=== PATIENT | female | born 1955 | race Caucasian/White ===

== ENCOUNTER 2019-09-13 13:36 | Inpatient (IN) ==
--- NOTE | 2019-09-13 14:41 | XRay Report ---
XR chest 1V portable CLINICAL HISTORY: cough, syncope COMPARISON STUDY: 03/22/2015 FINDINGS: The cardiac and mediastinal contours are normal. There is no evidence of focal pulmonary co nsolidation. There is no evidence of failure. No pleural effusions are visualized.[Indistinctness lef t heart border is felt to be secondary to a prominent cardiophrenic angle fat pad. There is a mild sc oliosis. IMPRESSION: No active disease in the chest. ACT 112: Negative or not required by law. Electronically signed by: Juno Marquez M.D. 09/13/2019 2:39 PM
--- NOTE | 2019-09-13 14:43 | XRay Report ---
XR foot RT min 3V routine CLINICAL HISTORY: right lateral foot pain, fall trauma. Pain. COMPARISON: None. DISCUSSION: Transverse fracture medial malleolus. Degenerative change of the bony structures of the f oot. Probable fracture base second metatarsal. Degenerative change of the metatarsophalangeal joints throughout. Moderate bunion deformity with ernandez ux valgus configuration. There is no evidence for soft tissue swelling. IMPRESSION: 1. Transverse fracture medial malleolus right ankle. 2. Nondisplaced fracture base second metatarsal. 3. Degenerative change. 4. Small old avulsion anterior inferior calcaneus ACT 112: Negative or not required by law. The above report was generated using voice recognition software. It may contain grammatical, syntax or spelling errors. Electronically signed by: Loc Alvarez M.D. 09/13/2019 2:41 PM
--- NOTE | 2019-09-13 14:43 | XRay Report ---
XR ankle RT min 3V routine CLINICAL HISTORY: fall, pain COMPARISON: None. DISCUSSION: There is lateral soft tissue swelling. There is an oblique fracture of the distal fibula. There is minimal widening of the medial ankle mortise. There is plantar calcaneal spurring. IMPRESSION: 1. Nondisplaced oblique fracture of the distal fibula 2. Minimal widening of the medial ankle mortise. ACT 112: Negative or not required by law. Electronically signed by: Juno Marquez M.D. 09/13/2019 2:41 PM
[2019-09-13] MEDS ORDERED: ONDANSETRON INJ 2 MG/ML 2 ML VIAL IV STA (15:26)
[2019-09-13] MEDS ORDERED: MoRPHine SULFATE 4 MG/ML 1 ML CARP\\VIAL IV STA (15:26)
[2019-09-13 15:32] LABS: Basophils # (auto) 0.04 K/uL (0-0.2); Basophils % (auto) 0.3 %; Eosinophils # (auto) 0.23 K/uL (0-0.5); Eosinophils % (auto) 1.5 %; Hematocrit (blood only) 45.5 % (37-47); Hemoglobin 15.5 g/dL (12.0-16.0); Immature Granulocytes # (auto) 0.07 K/uL (0.00-0.02); Immature Granulocytes % (auto) 0.5 %; Lymphocytes # (auto) 2.58 K/uL (1.2-3.4); Lymphocytes % (auto) 16.9 %; Mean Corpuscular Hemoglobin 31.6 pg (25-34); Mean Corpuscular Hgb Conc 34.1 g/dL (32-36); Mean Corpuscular Volume 92.7 fL (80-100); Mean Platelet Volume 10.4 fL (7.4-10.4); Monocytes # (auto) 1.04 K/uL (0.11-0.59); Monocytes % (auto) 6.8 %; Neutrophils # (auto) 11.35 K/uL (1.4-6.5); Platelet Count 301 K/uL (130-400); RDW Coefficient of Variation 14.3 % (11.5-14.5); Red Blood Count 4.91 M/uL (4.2-5.4); White Blood Count 15.31 K/uL (4.8-10.8)
[2019-09-13 15:42] LABS: Prothrombin Time 10.4 Seconds (9.0-12.0)
--- NOTE | 2019-09-13 15:52 | CT Scan Report ---
CT head/brain wo con CT DOSE: 691.05 mGy.cm HISTORY: Mental status change syncope TECHNIQUE: Multiaxial CT images of the head were performed without the use of intravenous contrast. A dose lowering technique was utilized adhering to the principles of ALARA. Comparison: None. Findings: The paranasal sinuses and mastoid air cells are clear. The calvarium and skull base are int act. The ventricles and sulci are within normal limits. There is no mass, hematoma, midline shift, or acute infarct. Impression: No acute intracranial abnormality. ACT 112: Negative or not required by law. The above report was generated using voice recognition software. It may contain grammatical, syntax or spelling errors. Electronically signed by: Loc Alvarez M.D. 09/13/2019 3:50 PM
[2019-09-13 15:53] LABS: Alanine Aminotransferase 20 U/L (12-78); Albumin Level 3.5 gm/dl (3.4-5.0); Aspartate Aminotransferase 15 U/L (15-37); BUN Creatinine Ratio 13.6 (10-20); Blood Urea Nitrogen 19 mg/dl (7-18); Calcium 9.3 mg/dl (8.5-10.1); Carbon Dioxide 29 mmol/L (21-32); Chloride 102 mmol/L (98-107); Est GFR (Non-African American) 39.7; Glucose 116 mg/dl (70-99); Magnesium 2.1 mg/dl (1.8-2.4); Potassium 4.3 mmol/L (3.5-5.1); Sodium 135 mmol/L (136-145)
[2019-09-13 16:03] LABS: Albumin Globulin Ratio 0.8 (0.9-2); Alkaline Phosphatase 97 U/L (45-117); Bilirubin,Total 0.7 mg/dl (0.2-1); Globulin 4.5 gm/dl (2.5-4.0); Troponin I < 0.015 ng/ml (0-0.045)
--- NOTE | 2019-09-13 17:35 | Electrocardiogram Report ---
Test Reason : Blood Pressure : / mmHG Vent. Rate : 083 BPM Atrial Rate : 083 BPM P-R Int : 186 ms QRS Dur : 094 ms QT Int : 374 ms P-R-T Axes : 027 -33 -08 degrees QTc Int : 439 ms Poor data quality, interpretation may be adversely affected Sinus rhythm with Premature atrial complexes Left axis deviation Moderate voltage criteria for LVH, may be normal variant Diffuse Nonspecific T wave abnormality Nonspecific ST abnormality Anterior leads Abnormal ECG When compared with ECG of 24-MAR-2015 07:14, Premature atrial complexes are now Present Otherwise no significant change Confirmed by Erasto Casarez ([id number]) on 09/13/2019 5:34:59 PM Referred By: REFERRED SELF Confirmed By:Erasto Casarez
[2019-09-13 17:58] LABS: Creatine Kinase 143 U/L (26-192)
--- NOTE | 2019-09-13 18:20 | History & Physical Report ---
Date of Service September 13, 2019 Assessment & Plan (1) Syncope: (2) Fall: Pt is 63 y/o F with PMH HTN, asthma, CKD III, HLD, depression, obesity presented to ER with c/o episode of dizziness with walking to bathroom at 1:00AM followed by black vision and syncope and fall. Denies SOB, CP prior to fall. In ER afebrile, P: 67, R: 20, BP: 138/95, 99% on RA. WBC: 15, Hgb: 15.5, Na: 135, glucose: 116, negative troponin, EKG with sinus rhythm, PAC, nonspecific ST changes CT HEAD: No acute changes CXR: no acute changes DDX: orthostatic hypotension, vasovagal syncope, hypoglycemia, arrhythmia -Tele to monitor for arrhythmias -Obtain orthostatic vitals -UA pending -CPK WNL -Fall precautions -CBC, BMP in am (3) Closed right ankle fracture: (4) Closed fracture of metatarsal of right foot: S/P Fall RIGHT ANKLE XRAY: 1. Nondisplaced oblique fracture of the distal fibula. 2. Minimal widening of the medial ankle mortise. RIGHT FOOT XRAY: 1. Transverse fracture medial malleolus right ankle. 2. Nondisplaced fracture base second metatarsal. 3. Degenerative change. 4. Small old avulsion anterior inferior calcaneus -In ER given Morphine 4mg IV, Zofran 4mg IV -In ER splint applied to right lower leg and foot -Oxycodone prn pain -Ortho consult -Consider PT/OT eval when appropriate (5) Asthma: Recent URI symptoms 2 weeks ago with improvement of symptoms No current wheezing -Pt not taking her Flovent that was previously prescribed as it was too expensive -Continue albuterol prn (6) Hypertension: Stable -Continue metoprolol (7) CKD (chronic kidney disease), stage III: Cr: 1.39. Baseline Cr: 1.2 -Avoid nephrotoxic agents when possible -Monitor renal functions (8) Depression: Stable -Continue citalopram, bupropion (9) Hyperlipidemia: -Pt not taking statin. Unsure why she stopped taking it (10) EUGENE (obstructive sleep apnea): -Noncompliant with CPAP in past -Oxygen HS (11) Obesity: BMI>40 -Lifestyle modifications recommended (12) Tobacco use: -Smoking cessation encouraged -Denies nicotine patch DVT Prophylaxis -Lovenox SQ Full Code as per discussion with pt Follows with Dr Carmen Manzanares for routine care Pt was seen and care coordinated with Dr Ahuja. See addendum History of Present Illness Chief Complaint: Syncope, right ankle pain Primary Care Provider: Carmen Manzanares MD Pt is 63 y/o F with PMH HTN, asthma, CKD III, HLD, depression, obesity presented to ER with c/o syncope and fall. Pt reports 2 weeks ago started with sore throat, cough, nasal congestion, wheezing without fever/chills. She states was taking Marita-seltzer, then tried Delsym and has been taking Mucinex DM once a day. Reports sore throat, congestion, wheezing and cough has resolved. Reports SOB at baseline and uses Albuterol inhaler a couple of times a week at baseline and denies more frequent use recently. Reports last night got out of bed at 1:00AM and felt dizzy with walking and then reports vision went black and passed out for what she thinks was seconds. She thinks hit her head. States had right ankle pain and was unable to stand up and tried for approx 20 minutes to get herself back into bed. C/O right ankle and foot pain only. Denies any CP or increased SOB prior to syncope. Pt denies frequent dizziness with standing and denies prior hx syncope. Denies fever/chills, diaphoresis, N/V/D/C, VAIL, vision changes, neck pain, CP, orthopnea, palpitations, choking, otalgia, abdominal pain, paresthesias, extremity edema, rashes, urinary symptoms. Allergies Allergy/AdvReac Type Severity Reaction Status Date / Time No Known Allergies Allergy Unverified 09/13/19 14:37 Home Medications Home Medications Medication Instructions Recorded Confirmed Type metoprolol tartrate 25 mg PO BID #0 11/26/08 09/13/19 History citalopram 40 mg PO DAILY #0 01/27/11 09/13/19 History bupropion HCl [Wellbutrin SR] 150 mg PO BID 30 Days #60 tab 03/22/15 09/13/19 History albuterol sulfate 2 puff INHALATION QID PRN 09/13/19 09/13/19 History albuterol sulfate 2.5 mg INHALATION QID PRN 09/13/19 09/13/19 History aspirin 81 mg PO DAILY 09/13/19 09/13/19 History dextromethorphan-guaifenesin 1 tab PO Q12H 09/13/19 09/13/19 History [Mucinex DM] lansoprazole 30 mg PO BID 09/13/19 09/13/19 History Past Med/Surg History Medical History Asthma (Chronic) Asthma exacerbation (Resolved) CKD (chronic kidney disease), stage III COPD exacerbation (Acute) Depression (Chronic) Hyperlipidemia (Chronic) Hypertension (Chronic) Obesity EUGENE (obstructive sleep apnea) Tobacco use Surgical History (Updated 09/13/19 @ 18:22 by Uzma Ratliff PA-C) H/O tubal ligation (Chronic) History of bilateral knee replacement (Chronic) History of cataract surgery Family History (Updated 09/13/19 @ 18:22 by Uzma Ratliff PA-C) Other Cancer Coronary heart disease Depression Diabetes Social History (Updated 09/13/19 @ 18:23 by Uzma Ratliff PA-C) Feels Safe at Home: Yes Smoking Status: Current every day smoker Cigarettes Per Day: 1/2 ppd ; Hx Alcohol Use: Yes (7-8 drinks on the weekends) Hx Substance Use: No Review of Systems Review of Systems: All systems reviewed & are unremarkable except as noted in HPI & below Physical Exam Physical Exam: General: no acute distress, obese Head: normocephalic, atraumatic Eyes: PERRL, EOM's intact, conjunctiva non-injected, anicteric ENT: normal inspection external ears, nose, mucous membranes moist Neck: supple, trachea midline, non-tender, ROM intact Lungs: clear, no respiratory distress, no wheezing/rhonchi/rales CV: RRR, no murmur, no pretibial edema Abd: normal BS, soft, non-tender Ext: RLE: +splint lower leg to toes in place, sensation to light touch of exposed toes intact, brisk capillary refill. LLE: normal appearance, ROM intact. BUE: normal appearance, ROM intact. Neuro: A&O x 3, no focal deficits noted, normal affect Skin: warm, dry Results & Data Vital Signs (Past 12 Hours) Vital Signs Temp Pulse Pulse Resp BP BP Pulse Ox 01/16/20 17:00 87 18 132/62 94 09/13/19 15:37 85 16 121/54 L 94 09/13/19 13:41 36.7 C 67 20 138/95 99 Laboratory Results Short CBC 09/13/19 Range/Units 15:21 WBC 15.31 H (4.8-10.8) K/uL Hgb 15.5 (12.0-16.0) g/dL Hct 45.5 (37-47) % Plt Count 301 (130-400) K/uL BMP 09/13/19 15:21 Sodium 135 L Potassium 4.3 Chloride 102 Carbon Dioxide 29 BUN 19 H Creatinine 1.39 H Glucose 116 H Calcium 9.3 Cardiac Enzymes 09/13/19 Range/Units 15:21 Total Creatine Kinase 143 (26-192) U/L Troponin I < 0.015 (0-0.045) ng/ml Liver Function 09/13/19 Range/Units 15:21 Total Bilirubin 0.7 (0.2-1) mg/dl AST 15 (15-37) U/L ALT 20 (12-78) U/L Alkaline Phosphatase 97 (45-117) U/L Albumin 3.5 (3.4-5.0) gm/dl Diagnostic Findings CT HEAD: Impression: No acute intracranial abnormality. CXR: IMPRESSION: No active disease in the chest. RIGHT ANKLE XRAY: IMPRESSION: 1. Nondisplaced oblique fracture of the distal fibula 2. Minimal widening of the medial ankle mortise. RIGHT FOOT XRAY: IMPRESSION: 1. Transverse fracture medial malleolus right ankle. 2. Nondisplaced fracture base second metatarsal. 3. Degenerative change. 4. Small old avulsion anterior inferior calcaneus ECG Rhythm: sinus rhythm Findings: + nonspecific-ST abn and + PAC Additional Comments: Read by perianesthesia rn: Sinus rhythm with Premature atrial complexes Left axis deviation Moderate voltage criteria for LVH, may be normal variant Diffuse Nonspecific T wave abnormality Nonspecific ST abnormality Anterior leads Abnormal ECG When compared with ECG of 24-MAR-2015 07:14, Premature atrial complexes are now Present Otherwise no significant change Confirmed by Erasto Casarez ([id number]) on 09/13/2019 5:34:59 PM Code Status & VTE Plan VTE Prophylaxis Plan VTE Prophylaxis will be ordered: Yes Supervising Physician Co-Signing Physician Notes Attending addendum: The patient was seen and examined in emergency room in presence of the daughter She has had a syncopal episode, ended up falling with possible loss of consciousness and fracture of the right ankle and foot Denies any chest pain or palpitation, any new neurological symptoms before the fall except dizziness which seems to be secondary to dehydration Remains stable in the emergency room On examination Complains some pain at the right foot Hemodynamically stable Chest-clear to auscultate bilaterally Heart-S1-S2, regular Abdomen-benign Extremities-trace edema bilaterally in the right lower extremities bandaged [employer]-alert, awake and oriented x3 Admission labs, EKG and imaging studies reviewed Syncope likely secondary to postural hypotension doubt any significant cardiac and/or neurological etiology We will admit to telemetry unit Agree with assessment and plan as outlined above by ALIYAH Edgar Dr
[2019-09-13] MEDS ORDERED: ACETAMINOPHEN 325 MG TAB PO PRN (21:23)
[2019-09-13] MEDS ORDERED: MoRPHine SULFATE 2 MG/ML CARP IV PRN (21:23)
[2019-09-13] MEDS ORDERED: ALBUTEROL 0.083% NEBU SOLN 3 ML VIAL NEB PRN (21:23)
[2019-09-13] MEDS ORDERED: SODIUM CHLORIDE 0.9% 1000ML 1,000 ML IV SCH (21:23)
[2019-09-13] MEDS ORDERED: MoRPHine SULFATE 2 MG/ML CARP ONE (21:47)
[2019-09-13] MEDS: PANTOprazole 40 MG TAB PO SCH (23:25)
[2019-09-13] MEDS: BuPROPion SR 150 MG TABCR PO SCH (23:25)
[2019-09-13] MEDS: METOPROLOL TARTRATE 25 MG TAB PO SCH (23:25)
[2019-09-13] MEDS: ENOXAPARIN INJ 40 MG/0.4 ML SYR SQ SCH (23:32)
--- NOTE | 2019-09-14 00:35 | Emergency Department Note ---
Entered by Dinora Forrest acting as a scribe for ED Provider Note CHIEF COMPLAINT: Syncope HISTORY OF PRESENT ILLNESS: The patient is a 63 year old female who presents to the Emergency Room with complaints of an episode of syncope that occurred 13 hours ago. The patient states that she woke up at 0100 this morning to use the bathroom. The patient states that she started to feel dizzy so she tried to get back into her bed, but she did not make it. The patient states that she had an episode of syncope at this time. The patient states that when she fell, she hit her head, left elbow and right ankle. The patient states that her right ankle twisted and went underneath of her body. The patient states that she lost consciousness for a few seconds. The patient notes that she cannot put any weight on her right ankle. T he patient notes that she has also had cough and congestion for 2.5 weeks. The patient states that she has been taking [place] plus and Mucinex to help her symptoms. The patient notes that she has difficulty breathing at baseline but it has not been any worse than lately. The patient denies taking pain medication today and blood thinner use. Pt denies headache, fevers, chills, diaphoresis, visual changes, neck pain, chest pain, nausea, vomiting, abdominal pain, back pain, melena, hematochezia, urinary symptoms, numbness, weakness, lymphadenopathy, rash, or other complaints. REVIEW OF SYSTEMS: See HPI for pertinent positives and negatives. A total of ten systems were reviewed and were otherwise negative. PMHx/PSHx: Asthma, COPD, hyperlipidemia, hypertension, hypoxia, depression, and acute bronchitis. SOCIAL HISTORY: Patient lives at home. PHYSICAL EXAM: GENERAL: Awake, alert, well-appearing, in no distress HENT: Normocephalic, atraumatic. Oropharynx unremarkable. Tenderness to right occiput. EYES: PERRL. Normal conjunctiva. Sclera non-icteric. NECK: Inspection normal. Non-tender. Supple. No nuchal rigidity. FROM. No masses. RESPIRATORY: Clear to auscultation. No wheezes. No rales. Normal respiratory effort. CARDIAC: Normal rate. Normal rhythm. No murmurs. No rubs. Extremities warm and well perfused. Pulses equal. No JVD. GI: Soft, non-distended. No tenderness to palpation. No rebound or guarding. No masses. RECTAL: Deferred. MUSCULOSKELETAL: Atraumatic. Chest examination reveals no tenderness. The back is symmetrical on inspection without obvious abnormality. There is no CVA tenderness to palpation. No joint edema. Spine is non-tender. UPPER EXTREMITIES: Right upper extremity atraumatic. Left upper extremity atraumatic except for mild contusion on left elbow. LOWER EXTREMITIES: Moderate swelling, bruising and tenderness to the right later al malleolus with the remainder of the right lower extremity atraumatic and non- tender. Left lower extremity atraumatic. NEURO: Normal sensorium. No sensory or motor deficits noted. SKIN: No rash or jaundice noted. EMERGENCY DEPARTMENT COURSE: 1420: Past medical records reviewed. The patient was evaluated in room C06, and a complete history and physical examination were performed. 1602: I updated the patient on the test results. I informed her that shes getting splinted. 1658: I applied the splint at this time. 1715: I updated the patient on the plan for admission. She verbally agrees and understands. 1719: I discussed the patient's case with Uzma Walker PA-C. She accept the patient under Dr. Angela Walker, Hospitalist. They will evalu ate the patient for further management. MEDICAL DECISION MAKING: C6 Triage Nursing notes reviewed and agree them. Additional history obtained from the family. The patient's history was concerning for syncope and ankle pain. Differential diagnosis: Etiologies such as infection, hypoglycemia, electrolyte abnormalities, cardiac sources, intracerebral event, toxicologic, neurologic, fracture, dislocation, soft tissue injury, as well as others were entertained. Physical examination: As above. Quite tender in the ankle region. No open wounds. ER treatment provided: IV hydration with normal saline IV morphine x2 IV Zofran Splinting On reassessment the patient felt better. Diagnostics interpretation by me: ECG: Sinus rhythm without dysrhythmia or ischemia. The labs revealed a moderate leukocytosis on CBC. Chemistry panel was unremarkable. Troponin negative. TSH negative. Imaging studies: Chest x-ray negative for acute process. No pneumonia. CT scan of the head was negative for intracranial bleeding or fracture. X-ray imaging of the right ankle reveals a bimalleolar ankle fracture. There is slight widening of the mortise. There is also a fracture of the base of the second metatarsal. The patient had a syncopal episode. She has bronchitis/flulike symptoms that have been going on for 2 weeks. No pneumonia was seen. She suffered a significant ankle fracture and foot fracture. Further management in the hospital will be necessary. Consultation: A consultation was placed with the hospitalist. The case was discussed and diagnostics were reviewed. The patient was evaluated in the ER for further treatment. IMPRESSION: Syncope, bimalleolar fracture of right ankle, leukocytosis, fracture of second metatarsal bone of right foot. PLAN: Admitted as inpatient Splinting Indication: Right ankle and foot fracture Verbal consent obtained. Risks and benefits were explained with the usual customary discussion. The injured extremity was identified. The patient was prepped and measured for the placement of a short leg posterior with stirrup ortho-glass splint. Splint applied in the standard fashion over a layer of webril and secured using an elastic bandage. Set into a position of function. Normal neurovascular status after placement verified by me. The patient tolerated the procedure well and the care of the splint was discussed with the patient/family. No complications. The scribe's documentation has been prepared under my direction and personally reviewed by me in its entirety. I confirm that the note above accurately reflects all work, treatment, procedures, and medical decision making performed by me. Impression & Plan Syncope, Bimalleolar fracture of right ankle, Leukocytosis, Fracture of second metatarsal bone of right foot Past Med/Surg History Medical History Asthma (Chronic) Asthma exacerbation (Resolved) CKD (chronic kidney disease), stage III COPD exacerbation (Acute) Depression (Chronic) Hyperlipidemia (Chronic) Hypertension (Chronic) Obesity EUGENE (obstructive sleep apnea) Tobacco use Surgical History (Updated 09/13/19 @ 18:22 by Uzma Ratliff PA-C) H/O tubal ligation (Chronic) History of bilateral knee replacement (Chronic) History of cataract surgery Family History (Updated 09/13/19 @ 18:22 by Uzma Ratliff PA-C) Other Cancer Coronary heart disease Depression Diabetes Social History (Updated 09/13/19 @ 18:23 by Uzma Ratliff PA-C) 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 Required: No Beliefs That Will Affect Care: None Current Living Situation: Alone Other Information That Helps Us Care for You: No Feels Safe at Home: No Is there a partner from a previous relationship who is making you feel unsafe now?: No Any Concerns about Your Family Situation: No Would You Like to Speak to Someone About Your Situation: No Safety Concerns: Feels Safe At This Time Smoking Status: Former smoker Tobacco Type: cigarettes ; Cigarettes Per Day: 1/2 ppd ; Do You Dip or Chew Tobacco: No ; Second Hand Exposure: No ; Tobacco Cessation Education Requested by Patient: No Hx Alcohol Use: No Hx Substance Use: No Results & Data Vital Signs Vital Signs - 24 hr 09/13/19 13:41 09/13/19 14:23 09/13/19 15:06 Temperature 36.7 C Temperature Source Oral Pulse Rate 67 Pulse Rate [Apical] Respiratory Rate 20 Respiratory Depth Normal Blood Pressure 138/95 Blood Pressure [Left Arm] Blood Pressure Mean 109 Blood Pressure Mean [Left Arm] Pulse Oximetry 99 Oxygen Delivery Method Room Air Room Air Room Air Sepsis New/Unexplained Change in Mental Status No Sepsis Action Taken by Nursing No Action Required 09/13/19 15:37 09/13/19 17:00 Temperature Temperature Source Pulse Rate Pulse Rate [Apical] 85 87 Respiratory Rate 16 18 Respiratory Depth Blood Pressure Blood Pressure [Left Arm] 121/54 L 132/62 Blood Pressure Mean Blood Pressure Mean [Left Arm] 76 85 Pulse Oximetry 94 94 Oxygen Delivery Method Room Air Room Air Sepsis New/Unexplained Change in Mental Status Sepsis Action Taken by Penitentiary Medications Current Medication List: was personally reviewed by me Laboratory Data Attestation: I reviewed the patient's lab results. Result diagrams: 09/13/19 15:21 09/13/19 15:21 Lab Results 09/13/19 09/13/19 09/13/19 Range/Units 15:21 15:21 15:21 WBC 15.31 H (4.8-10.8) K/uL RBC 4.91 (4.2-5.4) M/uL Hgb 15.5 (12.0-16.0) g/dL Hct 45.5 (37-47) % MCV 92.7 (80-100) fL MCH 31.6 (25-34) pg MCHC 34.1 (32-36) g/dL RDW Std Deviation 48.0 H (36.4-46.3) fL RDW Coeff of Janna 14.3 (11.5-14.5) % Plt Count 301 (130-400) K/uL MPV 10.4 (7.4-10.4) fL Immature Gran % (Auto) 0.5 % Neut % (Auto) 74.0 % Lymph % (Auto) 16.9 % [place] % (Auto) 6.8 % Eos % (Auto) 1.5 % Baso % (Auto) 0.3 % Immature Gran # (Auto) 0.07 H (0.00-0.02) K/uL Neut # (Auto) 11.35 H (1.4-6.5) K/uL Lymph # (Auto) 2.58 (1.2-3.4) K/uL [place] # (Auto) 1.04 H (0.11-0.59) K/uL Eos # (Auto) 0.23 (0-0.5) K/uL Baso # (Auto) 0.04 (0-0.2) K/uL PT 10.4 (9.0-12.0) Seconds INR 1.0 (0.9-1.1) Sodium 135 L (136-145) mmol/L Potassium 4.3 (3.5-5.1) mmol/L Chloride 102 (98-107) mmol/L Carbon Dioxide 29 (21-32) mmol/L Anion Gap 4.0 (3-11) BUN 19 H (7-18) mg/dl Creatinine 1.39 H (0.6-1.2) mg/dl Est Cr Clr Drug Dosing Not Reportable Est GFR ( Amer) 46.0 Est GFR (Non-Af Amer) 39.7 BUN/Creatinine Ratio 13.6 (10-20) Glucose 116 H (70-99) mg/dl Calcium 9.3 (8.5-10.1) mg/dl Magnesium 2.1 (1.8-2.4) mg/dl Total Bilirubin 0.7 (0.2-1) mg/dl AST 15 (15-37) U/L ALT 20 (12-78) U/L Alkaline Phosphatase 97 (45-117) U/L Total Creatine Kinase 143 (26-192) U/L Troponin I < 0.015 (0-0.045) ng/ml Total Protein 8.0 (6.4-8.2) gm/dl Albumin 3.5 (3.4-5.0) gm/dl Globulin 4.5 H (2.5-4.0) gm/dl Albumin/Globulin Ratio 0.8 L (0.9-2) TSH 2.850 (0.300-4.500) uIu/ml Administered Medications Bupropion HCl (Wellbutrin-Sr) 150 mg PO BID NEELAM Stop: 10/13/19 22:59 Last Admin: 09/13/19 23:25 Dose: 150 mg Documented by: [id number] Enoxaparin Sodium (Lovenox) 40 mg SQ Q24H NEELAM Stop: 10/13/19 22:59 Last Admin: 09/13/19 23:32 Dose: 40 mg Documented by: [id number] Sodium Chloride (Nss 1000ml) 1,000 mls @ 100 mls/hr IV .Q10H NEELAM Stop: 09/14/19 07:22 Last Admin: 09/13/19 21:50 Dose: 100 mls/hr Documented by: [id number] Metoprolol Tartrate (Lopressor) 25 mg PO BID NEELAM Stop: 10/13/19 22:59 Last Admin: 09/13/19 23:25 Dose: 25 mg Documented by: [id number] Pantoprazole Sodium (Protonix) 40 mg PO BID NEELAM Stop: 10/13/19 22:59 Last Admin: 09/13/19 23:25 Dose: 40 mg Documented by: [id number] Discontinued Medications Morphine Sulfate (Morphine Sulfate) 4 mg IV NOW STA Stop: 09/13/19 15:27 Last Admin: 09/13/19 15:37 Dose: 4 mg Documented by: [id number] Morphine Sulfate (Morphine Sulfate) Confirm Administered Dose 2 mg .ROUTE .STK- MED ONE Stop: 09/13/19 21:48 Last Admin: 09/13/19 21:49 Dose: 2 mg Documented by: [id number] Ondansetron HCl (Zofran) 4 mg IV NOW STA Stop: 09/13/19 15:27 Last Admin: 09/13/19 15:37 Dose: 4 mg Documented by: [id number] Imaging Data Radiologist's Impression: Radiology results as stated below per my review and the radiologist's interpretation: CT head/brain wo con CT DOSE: 691.05 mGy.cm HISTORY: Mental status change syncope TECHNIQUE: Multiaxial CT images of the head were performed without the use of intravenous contrast. A dose lowering technique was utilized adhering to the principles of ALARA. Comparison: None. Findings: The paranasal sinuses and mastoid air cells are clear. The calvarium and skull base are intact. The ventricles and sulci are within normal limits. There is no mass, hematoma, midline shift, or acute infarct. Impression: No acute intracranial abnormality. ACT 112: Negative or not required by law. The above report was generated using voice recognition software. It may contain grammatical, syntax or spelling errors. Electronically signed by: Loc Alvarez M.D. 09/13/2019 3:50 PM XR chest 1V portable CLINICAL HISTORY: cough, syncope COMPARISON STUDY: 03/22/2015 FINDINGS: The cardiac and mediastinal contours are normal. There is no evidence of focal pulmonary consolidation. There is no evidence of failure. No pleural effusions are visualized.[Indistinctness left heart border is felt to be secondary to a prominent cardiophrenic angle fat pad. There is a mild scoliosis. IMPRESSION: No active disease in the chest. ACT 112: Negative or not required by law. Electronically signed by: Juno Marquez M.D. 09/13/2019 2:39 PM XR ankle RT min 3V routine CLINICAL HISTORY: fall, pain COMPARISON: None. DISCUSSION: There is lateral soft tissue swelling. There is an oblique fracture of the distal fibula. There is minimal widening of the medial ankle mortise. There is plantar calcaneal spurring. IMPRESSION: 1. Nondisplaced oblique fracture of the distal fibula 2. Minimal widening of the medial ankle mortise. ACT 112: Negative or not required by law. Electronically signed by: Juno Marquez M.D. 09/13/2019 2:41 PM XR foot RT min 3V routine CLINICAL HISTORY: right lateral foot pain, fall trauma. Pain. COMPARISON: None. DISCUSSION: Transverse fracture medial malleolus. Degenerative change of the bony structures of the foot. Probable fracture base second metatarsal. Degenerative change of the metatarsophalangeal joints throughout. Moderate bunion deformity with hallux valgus configuration. There is no evidence for soft tissue swelling. IMPRESSION: 1. Transverse fracture medial malleolus right ankle. 2. Nondisplaced fracture base second metatarsal. 3. Degenerative change. 4. Small old avulsion anterior inferior calcaneus ACT 112: Negative or not required by law. The above report was generated using voice recognition software. It may contain grammatical, syntax or spelling errors. Electronically signed by: Loc Alvarez M.D. 09/13/2019 2:41 PM ECG Data Attestation: I personally reviewed and interpreted this ECG as follows: Indication: + syncope Rate (beats per minute): 83 Rhythm: sinus rhythm ECG Intervals/blocks: + Normal QRS ECG ST segments: + Nonspecific ST abnormalities ECG Findings: + PACs and + LVH Comparison ECG Date: from (03/24/2015) Change: the following changes noted (PAC new) Blood Pressure Blood Pressure Findings: Elevated blood pressure Blood Pressure Disposition: further management by hospitalist Discharge Plan Visit Data *Final* Discharge Date/Time: 09/13/19 20:45 Chief Complaint: Syncope Stated Complaint: RIGHT ANKLE INJURY, PASSED OUT ED Provider: Chidi Briseno Discharge Problem: Syncope, Bimalleolar fracture of right ankle, Leukocytosis, Fracture of second metatarsal bone of right foot Patient Disposition: Admitted As Inpatient Discharge Instructions Interventions: ED Discharge Assessment Last Done: 09/13/19 20:45 Discharge Problem: Syncope Qualifiers: Syncope type: unspecified Qualified Code(s): R55 - Syncope and collapse Bimalleolar fracture of right ankle Qualifiers: Encounter type: initial encounter Fracture type: closed Qualified Code(s): S82.841A - Displaced bimalleolar fracture of right lower leg, initial encounter for closed fracture Leukocytosis Qualifiers: Leukocytosis type: unspecified Qualified Code(s): D72.829 - Elevated white blood cell count, unspecified Fracture of second metatarsal bone of right foot Qualifiers: Encounter type: initial encounter Fracture type: closed Fracture alignment: nondisplaced Qualified Code(s): S92.324A - Nondisplaced fracture of second metatarsal bone, right foot, initial encounter for closed fracture The scribe's documentation has been prepared under my direction and personally reviewed by me in its entirety. I confirm that the note above accurately reflects all work, treatment, procedures, and medical decision making performed by me.
[2019-09-14 02:06] LABS: Appearance Urine Cloudy (Clear); Bacteria Urine Automated 1+ (Negative); Bilirubin Urine Negative (Negative); Blood Urine 1+ (Negative); Color Urine Dark Yellow; Epithelial Cell Urine Auto >30 /lpf (0-5); Glucose Urine UA Negative (Negative); Ketones Urine Negative (Negative); Leukocyte Esterase Urine Negative (Negative); Nitrite Urine Negative (Negative); Protein Urine Negative (Negative); RBC Urine Automated 0-4 /hpf (0-4); Urobilinogen Urine Negative (Negative)
[2019-09-14] MEDS: OXYCODONE HCL IR 5 MG TAB (IMMEDIATE RELEASE) PO PRN ×3 (07:56→18:55)
[2019-09-14 07:57] LABS: Basophils # (auto) 0.05 K/uL (0-0.2); Basophils % (auto) 0.4 %; Eosinophils % (auto) 3.4 %; Hematocrit (blood only) 40.7 % (37-47); Hemoglobin 13.4 g/dL (12.0-16.0); Immature Granulocytes # (auto) 0.04 K/uL (0.00-0.02); Immature Granulocytes % (auto) 0.3 %; Lymphocytes # (auto) 3.13 K/uL (1.2-3.4); Lymphocytes % (auto) 26.8 %; Mean Corpuscular Hemoglobin 31.2 pg (25-34); Mean Corpuscular Hgb Conc 32.9 g/dL (32-36); Mean Corpuscular Volume 94.7 fL (80-100); Mean Platelet Volume 10.1 fL (7.4-10.4); Monocytes # (auto) 1.01 K/uL (0.11-0.59); Monocytes % (auto) 8.6 %; Neutrophils # (auto) 7.07 K/uL (1.4-6.5); Neutrophils % (auto) 60.5 %; Platelet Count 269 K/uL (130-400); RDW Coefficient of Variation 14.5 % (11.5-14.5); RDW Standard Deviation 49.6 fL (36.4-46.3)
[2019-09-14] MEDS: CITALOPRAM 40 MG TAB PO SCH (07:57)
[2019-09-14] MEDS: PANTOprazole 40 MG TAB PO SCH ×2 (07:57→20:55)
[2019-09-14] MEDS: ASPIRIN 81 MG ECTAB PO SCH (07:57)
[2019-09-14] MEDS: BuPROPion SR 150 MG TABCR PO SCH ×2 (07:58→20:55)
[2019-09-14] MEDS: METOPROLOL TARTRATE 25 MG TAB PO SCH ×2 (07:58→20:54)
[2019-09-14 08:25] LABS: BUN Creatinine Ratio 14.6 (10-20); Calcium 8.7 mg/dl (8.5-10.1); Est GFR (African American) 51.8; Est GFR (Non-African American) 44.7
--- NOTE | 2019-09-14 16:33 | Ultrasound Report ---
US carotid doppler BI CLINICAL HISTORY: 63 years-old Female presenting with presyncope/syncope. TECHNIQUE: Real-time grayscale and color and spectral Doppler ultrasound imaging of the bilateral car otid arteries was performed. Stenosis measurements were based on NASCET-like criteria (distal lumen d iameter as the denominator for stenosis measurement). COMPARISON: None. FINDINGS: RIGHT: Common carotid artery (CCA): Atherosclerosis at the carotid bulb. Peak systolic velocity (PSV) 91 cm/ s. Internal carotid artery (ICA): Atherosclerosis of the proximal ICA. PSV 88 cm/s. End diastolic veloci ty (EDV) 43 cm/s. ICA/CCA (systolic) ratio: 1.6. External carotid artery (ECA): Patent. PSV 98 cm/s. LEFT: CCA: Atherosclerosis at the carotid bulb. PSV 104 cm/s. ICA: Atherosclerosis of the proximal ICA. PSV 82 cm/s. EDV 38 cm/s. ICA/CCA (systolic) ratio: 0.8. ECA: Patent. PSV 59 cm/s. Bilateral antegrade flow within the vertebral arteries. Blood pressure: Brachial: Right: 158/118 mmHg, Left: 155/93 mmHg. Reference ranges: Stenosis measurements are compared to reference velocity parameters by the Society of Radiologists in Ultrasound (SRU) consensus and Sonographic NASCET index (S-NASCET). * SRU Primary parameters: ICA PSV <125 cm/s = normal or less than 50% stenosis; ICA PSV 125-230 cm/s = 50-69% stenosis; ICA PSV >230 cm/s = greater than or equal to 70% stenosis. * SRU Additional parameters: ICA/CCA PSV ratio <2 = normal or less than 50% stenosis; ratio 2-4 = 5 0-69% stenosis; ratio >4 = greater than or equal to 70% stenosis. ICA EDV <40 cm/s = normal or less t herndon 50% stenosis; ICA EDV 40-100 cm/s = 50-69% stenosis; ICA EDV >100 cm/s = greater than or equal to 70% stenosis. * S-NASCET parameters: Deceleration spectral broadening + PSV <125 cm/s = less than 50% stenosis; pa nsystolic spectral broadening + PSV <125 cm/s = 16-49% stenosis; pansystolic spectral broadening + PS V >125 cm/s + EDV <110 cm/s or ICA/CCA PSV ratio 2-4 = 50-69% stenosis; pansystolic spectral broadeni ng + PSV >270 cm/s OR EDV >110 cm/s OR ICA/CCA PSV ratio >4 = 70-79% stenosis; EDV >140 cm/s = 80-99% stenosis. IMPRESSION: 1. No hemodynamically significant stenosis seen within the carotid arteries. 2. Hypertension suspected. ACT 112: Negative or not required by law. Electronically signed by: Meño Martinez M.D. 09/14/2019 4:32 PM
--- NOTE | 2019-09-14 16:51 | Orthopedic Consultation ---
Date of Consultation September 14, 2019 Assessment & Plan (1) Bimalleolar fracture of right ankle: Bimalleolar closed right ankle fracture. Some widening of the mortise. Recommending open reduction total fixation with fibular plate and K wire or screw fixation medial malleolus. Patient will need full syncope work-up and off anticoagulants prior to surgery. (2) Fracture of second metatarsal bone of right foot: Nonsurgical management of metatarsal fracture with mobilization of ankle and metatarsal fracture postop. History of Present Illness Attending Physician: Carlos Hudson MD History of Present Illness 63-year-old female had a syncopal episode. She described feeling a little lightheaded was getting out of bed to go to the bathroom and had the episode and twisted her ankle and was unable to bear weight. Allergies Allergy/AdvReac Type Severity Reaction Status Date / Time No Known Allergies Allergy Unverified 09/13/19 14:37 Home Medications Home Medications Medication Instructions Recorded Confirmed Type metoprolol tartrate 25 mg PO BID #0 11/26/08 09/13/19 History citalopram 40 mg PO DAILY #0 01/27/11 09/13/19 History bupropion HCl [Wellbutrin SR] 150 mg PO BID 30 Days #60 tab 03/22/15 09/13/19 History albuterol sulfate 2 puff INHALATION QID PRN 09/13/19 09/13/19 History albuterol sulfate 2.5 mg INHALATION QID PRN 09/13/19 09/13/19 History aspirin 81 mg PO DAILY 09/13/19 09/13/19 History dextromethorphan-guaifenesin 1 tab PO Q12H 09/13/19 09/13/19 History [Mucinex DM] lansoprazole 30 mg PO BID 09/13/19 09/13/19 History Patient History Medical History Asthma (Chronic) Asthma exacerbation (Resolved) CKD (chronic kidney disease), stage III COPD exacerbation (Acute) Depression (Chronic) Hyperlipidemia (Chronic) Hypertension (Chronic) Obesity EUGENE (obstructive sleep apnea) Tobacco use Surgical History (Updated 09/13/19 @ 18:22 by Uzma Ratliff PA-C) H/O tubal ligation (Chronic) History of bilateral knee replacement (Chronic) History of cataract surgery Family History (Updated 09/13/19 @ 18:22 by Uzma Ratliff PA-C) Other Cancer Coronary heart disease Depression Diabetes Social History (Updated 09/13/19 @ 18:23 by Uzma Ratliff PA-C) Communication Ability: Effective 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 Beliefs That Will Affect Care: None marital status: / Current Living Situation: Alone Other Information That Helps Us Care for You: No Feels Safe at Home: No Is there a partner from a previous relationship who is making you feel unsafe now?: No Any Concerns about Your Family Situation: No Would You Like to Speak to Someone About Your Situation: No Safety Concerns: Feels Safe At This Time Smoking Status: Former smoker Tobacco Type: cigarettes ; Cigarettes Per Day: 1/2 ppd ; Do You Dip or Chew Tobacco: No ; Second Hand Exposure: No ; Tobacco Cessation Education Requested by Patient: No Hx Alcohol Use: No Hx Substance Use: No Review of Systems Review of Systems: Patient had known toe deformities prior to injuring her right foot and ankle and has no history of neuropathy to her knowledge. Patient denies diabetes. Physical Exam Physical Exam: Right lower extremity is in a posterior splint. She has good capillary refill to all of her toes and intact feeling. No trauma left lower extremity. Normal CSM. No other extremity injuries. Results & Data Vital Signs (Past 12 Hours) Vital Signs Temp Pulse Resp BP BP Pulse Ox 09/14/19 15:08 36.7 C 85 20 139/81 94 09/14/19 11:35 37.0 C 83 20 105/75 93 09/14/19 07:32 36.8 C 87 20 121/77 93 X-rays demonstrate a bimalleolar ankle fracture with mild widening of the mortise and metatarsal fractures of the foot at the base of the metatarsals with no major displacement in that area. (1) Bimalleolar fracture of right ankle Encounter type: initial encounter Fracture type: closed Qualified Code(s): S82.841A - Displaced bimalleolar fracture of right lower leg, initial encounter for closed fracture (2) Fracture of second metatarsal bone of right foot Encounter type: initial encounter Fracture alignment: nondisplaced Fracture type: closed Qualified Code(s): S92.324A - Nondisplaced fracture of second metatarsal bone, right foot, initial encounter for closed fracture
[2019-09-14] MEDS: ENOXAPARIN INJ 40 MG/0.4 ML SYR SQ SCH (20:55)
[2019-09-15] MEDS ORDERED: PROPOFOL IV EMULSION 10 MG/ML 20 ML VIAL IV ONE (07:06)
[2019-09-15] MEDS ORDERED: fentaNYL citrate 100 MCG/2 ML VIAL ONE ×3 (07:10→09:29)
[2019-09-15] MEDS ORDERED: MIDAZOLAM HCL 1 MG/ML 2ML VIAL ONE (07:11)
--- NOTE | 2019-09-15 07:14 | Hospitalist Progress Note ---
Date of Service September 14, 2019 Assessment & Plan (1) Syncope: (2) Fall: Pt is 63 y/o F with PMH HTN, asthma, CKD III, HLD, depression, obesity presented to ER with c/o episode of dizziness with walking to bathroom at 1:00AM followed by black vision and syncope and fall. Denies SOB, CP prior to fall. In ER afebrile, P: 67, R: 20, BP: 138/95, 99% on RA. WBC: 15, Hgb: 15.5, Na: 135, glucose: 116, negative troponin, EKG with sinus rhythm, PAC, nonspecific ST changes CT HEAD: No acute changes CXR: no acute changes DDX: orthostatic hypotension, vasovagal syncope, hypoglycemia, arrhythmia -Tele to monitor for arrhythmias - patient remains in sinus rhythm -Positive orthostatic vitals -Received IV fluids for orthostatics, no more episodes of lightheadedness -Echo and carotid ultrasound ordered -UA - negative -CPK WNL -Fall precautions -cont. CBC, BMP (3) Closed right ankle fracture: (4) Closed fracture of metatarsal of right foot: S/P Fall RIGHT ANKLE XRAY: 1. Nondisplaced oblique fracture of the distal fibula. 2. Minimal widening of the medial ankle mortise. RIGHT FOOT XRAY: 1. Transverse fracture medial malleolus right ankle. 2. Nondisplaced fracture base second metatarsal. 3. Degenerative change. 4. Small old avulsion anterior inferior calcaneus -In ER given Morphine 4mg IV, Zofran 4mg IV -In ER splint applied to right lower leg and foot -Oxycodone prn pain -Ortho consulted - plan for surgical repair tomorrow, n.p.o. after midnight -Consider PT/OT eval when appropriate (5) Asthma: Recent URI symptoms 2 weeks ago with improvement of symptoms No current wheezing -Pt not taking her Flovent that was previously prescribed as it was too expensive -Continue albuterol prn (6) Hypertension: Stable -Continue metoprolol (7) CKD (chronic kidney disease), stage III: Cr: 1.39. Baseline Cr: 1.2 - current Cr 1.26 -Avoid nephrotoxic agents when possible -Monitor renal functions (8) Depression: Stable -Continue citalopram, bupropion (9) Hyperlipidemia: -Pt not taking statin. Unsure why she stopped taking it (10) EUGENE (obstructive sleep apnea): -Noncompliant with CPAP in past -Oxygen HS (11) Obesity: BMI>40 -Lifestyle modifications recommended (12) Tobacco use: -Smoking cessation encouraged -Denies nicotine patch DVT Prophylaxis -Lovenox SQ Full Code as per discussion with pt Follows with Dr Carmen Manzanares for routine care Subjective Patient is lying in bed, breathing on room air, comfortable, only complains about right ankle pain. Says she had " flu" about 2 weeks ago, she has not felt well since then, she has not been eating well either, had emesis on Tuesday and Tuesday. Tells me that occasionally she does get lightheaded when she gets up from bed however it does not happen often to her. She was walking to the bathroom after she got up from bed, became lightheaded, remembers the whole incident. Never had any chest pain, shortness of breath, diaphoresis. Denies any heart disease. In the hospital, she was found orthostatic, positive orthostatic vital signs documented. Received IV fluids on admission. Review of Systems Review of Systems: All systems reviewed & are unremarkable except as noted in HPI & below Constitutional: no fever and no chills Respiratory: no cough, no dyspnea and no pain on inspiration Cardiovascular: no chest pain, no palpitations and no edema Gastrointestinal: no abdominal pain, no nausea and no vomiting Physical Exam Physical Exam: General: no acute distress, obese Head: normocephalic, atraumatic Eyes: PERRL, EOM's intact, conjunctiva non-injected, anicteric ENT: normal inspection external ears, nose, mucous membranes moist Neck: supple, trachea midline, non-tender, ROM intact Lungs: clear, no respiratory distress, no wheezing/rhonchi/rales CV: RRR, no murmur, no pretibial edema Abd: normal BS, soft, non-tender Ext: RLE: +splint lower leg to toes in place, sensation to light touch of exposed toes intact, brisk capillary refill. LLE: normal appearance, ROM intact. BUE: normal appearance, ROM intact. Neuro: A&O x 3, no focal deficits noted, normal affect Skin: warm, dry Results & Data Vital Signs (Past 12 Hours) Vital Signs Temp Pulse Pulse Resp BP Pulse Ox 09/15/19 03:32 37.0 C 84 20 109/70 92 09/15/19 00:30 89 09/15/19 00:21 36.8 C 86 20 137/85 92 09/14/19 22:57 37.1 C 95 H 20 148/81 H 93 09/14/19 19:45 37.1 C 83 20 130/77 94
--- NOTE | 2019-09-15 07:26 | XRay Report ---
XR knee RT 1 or 2V routine HISTORY: 63 years-old Female ankle fracture, 2 view of knee acute right knee pain COMPARISON: None available TECHNIQUE: 2 views of the right knee FINDINGS: Right knee total joint arthroplasty and patella resurfacing. Small joint effusion. Demineralized appe arance of the bones. No acute fracture, dislocation or evidence of hardware complication. IMPRESSION: No acute fracture or dislocation. ACT 112: Negative or not required by law. The above report was generated using voice recognition software. It may contain grammatical, syntax o r spelling errors. Electronically signed by: Sebastian Magallanes M.D. 09/15/2019 7:25 AM
--- NOTE | 2019-09-15 07:42 | Anesthesiology Consultation ---
Date of Service September 15, 2019 Assessment & Plan (1) Encounter for pre-operative examination: Chart Review Chart Review: Acceptable Risk for Surgery and Patient NOT seen in Pre Admission Testing Consults Requested none ASA ASA3 Proposed Anesthesia Anesthesia Type: General Risk / Benefits Reviewed With: PT / POA / Parent / Guardian, Accepts Plan and Informed Consent Obtained History Surgery Operation Date: 09/15/19 07:30 Proposed Procedures p Open Reduction Internal Fixation Bimalleolar Ankle Fracture(Right) - Ross Decker DO Height/Weight Height: 5 ft 6 in Weight: 115.2 kg Allergies Allergy/AdvReac Type Severity Reaction Status Date / Time No Known Allergies Allergy Unverified 09/13/19 14:37 Medications Home Medications Medication Instructions Recorded Confirmed Last Taken metoprolol tartrate 25 mg PO BID #0 11/26/08 09/13/19 09/13/19 citalopram 40 mg PO DAILY #0 01/27/11 09/13/19 09/12/19 bupropion HCl [Wellbutrin SR] 150 mg PO BID 30 Days #60 tab 03/22/15 09/13/19 09/12/19 albuterol sulfate 2 puff INHALATION QID PRN 09/13/19 09/13/19 Unknown albuterol sulfate 2.5 mg INHALATION QID PRN 09/13/19 09/13/19 Unknown aspirin 81 mg PO DAILY 09/13/19 09/13/19 09/12/19 dextromethorphan-guaifenesin 1 tab PO Q12H 09/13/19 09/13/19 09/12/19 [Mucinex DM] lansoprazole 30 mg PO BID 09/13/19 09/13/19 09/12/19 Active Medications Generic Name Dose Route Start Last Admin Trade Name Freq PRN Reason Stop Dose Admin Aspirin 81 mg 09/14/19 09:00 09/14/19 07:57 Ecotrin Ectab PO 10/14/19 08:59 81 mg DAILY NEELAM Administration Bupropion HCl 150 mg 09/13/19 23:00 09/14/19 20:55 Wellbutrin-Sr PO 10/13/19 22:59 150 mg BID NEELAM Administration Citalopram Hydrobromide 40 mg 09/14/19 09:00 09/14/19 07:57 Celexa PO 10/14/19 08:59 40 mg DAILY NEELAM Administration Enoxaparin Sodium 40 mg 09/13/19 23:00 09/14/19 20:55 Lovenox SQ 10/13/19 22:59 40 mg Q24H NEELAM Administration Metoprolol Tartrate 25 mg 09/13/19 23:00 09/14/19 20:54 Lopressor PO 10/13/19 22:59 25 mg BID NEELAM Administration Oxycodone HCl 5 mg 09/13/19 21:23 09/14/19 18:55 Roxicodone Immediate Rel PO 09/27/19 21:22 5 mg Q4H PRN Administration Moderate Pain Pantoprazole Sodium 40 mg 09/13/19 23:00 09/14/19 20:55 Protonix PO 10/13/19 22:59 40 mg BID NEELAM Administration Past Medical History Medical History Asthma (Chronic) Asthma exacerbation (Resolved) CKD (chronic kidney disease), stage III COPD exacerbation (Acute) Depression (Chronic) Hyperlipidemia (Chronic) Hypertension (Chronic) Obesity EUGENE (obstructive sleep apnea) Tobacco use Exercise / Class Metabolic Activity II 4-5 Yardwork/Stairs/Walk up hill Past Family History Family History Other Cancer Coronary heart disease Depression Diabetes Past Surgical History Surgical History H/O tubal ligation (Chronic) History of bilateral knee replacement (Chronic) History of cataract surgery Past Anesthesia History No Hx of Anesthesia Complications and No Family Hx of Anesthesia Complications History of PONV No Hx of PONV and No Hx of Motion Sickness Social History Smoking Status: Former smoker tobacco type: cigarettes Smoking cigarettes per day: 1/2 ppd Do You Dip or Chew Tobacco: No Hx Alcohol Use: No Hx Substance Use: No substance use type: does not use Physical Exam Vital Signs Last Vital Signs Temp 37.0 C 09/15/19 03:32 Pulse 84 09/15/19 03:32 Resp 20 09/15/19 03:32 BP 109/70 09/15/19 03:32 Pulse Ox 92 09/15/19 03:32 ENMT Mouth: + dentures (upper) Thyromental Distance: > or= 3.5 Finger Breadths Mallampati Class: II Neck normal visual inspection Respiratory normal respiratory effort Auscultation: lungs clear to auscultation bilaterally Cardiovascular Rate/Rhythm: regular rate and regular rhythm Psychiatric Orientation: alert Testing Laboratory Results 09/14/19 07:39 09/14/19 07:39 PT 10.4 Seconds (9.0-12.0) 09/13/19 15:21 INR 1.0 (0.9-1.1) 09/13/19 15:21 Urine Color Dark Yellow 09/14/19 01:20 Urine Appearance Cloudy (Clear) A 09/14/19 01:20 Urine pH 5.0 (4.5-7.5) 09/14/19 01:20 Ur Specific [place] 1.030 (1.000-1.030) 09/14/19 01:20 Urine Protein Negative (Negative) 09/14/19 01:20 Urine Glucose (UA) Negative (Negative) 09/14/19 01:20 Urine Ketones Negative (Negative) 09/14/19 01:20 Urine Nitrite Negative (Negative) 09/14/19 01:20 Ur Leukocyte Esterase Negative (Negative) 09/14/19 01:20 Urine WBC (Auto) 1-5 /hpf (0-5) 09/14/19 01:20 Urine RBC (Auto) 0-4 /hpf (0-4) 09/14/19 01:20 U Hyaline Cast (Auto) 5-10 /lpf (0-5) H 09/14/19 01:20 U Epithel Cells (Auto) >30 /lpf (0-5) H 09/14/19 01:20 Urine Bacteria (Auto) 1+ (Negative) H 09/14/19 01:20 09/14/19 01:20 Urine Culture - Final Urine,Clean Catch More than three types of organisms present, all moderate counts mixed probable skin sharmila. No further identifications or sensitivities to follow. Electrocardiogram Date: 09/13/19 Findings: + NSR @ and + NSST changes Chest X-Ray Date: 09/13/19 Findings: + NAD Echocardiogram Date: 09/14/19 EF: 60 LV Function: normal Other Findings: + LVH and + diastolic dysfunction
[2019-09-15] MEDS ORDERED: ePHEDrine sulfate 50 MG/ML AMP IV PRN (07:48)
[2019-09-15] MEDS ORDERED: PROMETHAZINE HCL 6.25 MG in SODIUM CHLORIDE 0.9% 50 ML IV PRN (07:48)
[2019-09-15] MEDS ORDERED: ONDANSETRON INJ 2 MG/ML 2 ML VIAL IV PRN ×2 (07:48→11:38)
[2019-09-15] MEDS ORDERED: fentaNYL citrate 100 MCG/2 ML VIAL IV PRN (07:48)
[2019-09-15] MEDS ORDERED: ATROPINE SULFATE 0.1 MG/ML 10ML SYR IV PRN (07:48)
--- NOTE | 2019-09-15 07:49 | History & Physical Bridge Note ---
Date of Service September 15, 2019 History & Physical Bridge Note I have examined the patient, reviewed the History & Physical and in the interval since the performance of the History & Physical I have noted the following changes of clinical significance: no changes noted
--- NOTE | 2019-09-15 07:52 | Orthopedic Progress Note ---
Date of Service September 15, 2019 Assessment & Plan (1) Bimalleolar fracture of right ankle: I have indicated the patient for closed reduction and splint application versus open reduction internal fixation of right bimalleolar ankle fracture. The risk, benefits, complications and alternatives of the procedure were explained to the patient in detail which include however not limited to infections, blood clots, acute blood loss, injury to surrounding nerves, bone, vessels, soft tissue, arthrofibrosis, chronic pain, malunion, nonunion, failure of the implants, need for additional surgery, loss of limb and loss of life. Alternatives include no surgery which could result in worsening symptoms. Patient wished to proceed with surgical intervention at this time and informed consent was obtained. (2) Fracture of second metatarsal bone of right foot: Nonsurgical management of metatarsal fracture with mobilization of ankle and metatarsal fracture postop. Subjective Patient seen in preoperative holding, comfortable, no acute issues, medically stabilized for surgery today. Review of Systems Review of Systems: All systems reviewed & are unremarkable except as noted in HPI & below Constitutional: as per Subjective / HPI Physical Exam Physical Exam: Right lower extremity physical exam limited secondary to splint application, cap refill less than 2 seconds, neurovascular sensory intact grossly, + EHL/FHL, range of motion the knee without pain or discomfort. No tenderness to palpation proximal fibula. Constitutional: WD/WN, vitals as above Results & Data Vital Signs (Past 12 Hours) Vital Signs Temp Pulse Pulse Resp BP Pulse Ox 09/15/19 03:32 37.0 C 84 20 109/70 92 09/15/19 00:30 89 09/15/19 00:21 36.8 C 86 20 137/85 92 09/14/19 22:57 37.1 C 95 H 20 148/81 H 93 (1) Bimalleolar fracture of right ankle Encounter type: initial encounter Fracture type: closed Qualified Code(s): S82.841A - Displaced bimalleolar fracture of right lower leg, initial encounter for closed fracture (2) Fracture of second metatarsal bone of right foot Encounter type: initial encounter Fracture alignment: nondisplaced Fracture type: closed Qualified Code(s): S92.324A - Nondisplaced fracture of second metatarsal bone, right foot, initial encounter for closed fracture
[2019-09-15] MEDS ORDERED: ONDANSETRON INJ 2 MG/ML 2 ML VIAL ONE (08:18)
[2019-09-15] MEDS ORDERED: LIDOCAINE HCL 2% 2 ML VIAL/AMP(20MG/ML) INFIL ONE (08:18)
[2019-09-15] MEDS ORDERED: DEXAMETHASONE SOD INJ 4 MG/ML VIAL ONE (08:18)
[2019-09-15] MEDS ORDERED: BUPIVACAINE/EPINEPHRINE 0.5% MPF 1:200,000 10 ML VIAL ONE (08:26)
--- NOTE | 2019-09-15 09:51 | Post Operative Brief Note ---
Immediate Post Op Note v1 Date of Surgery September 15, 2019 Pre & Post Diagnosis Operation Date: 09/15/19 07:30 Pre-Op Diagnosis: Right ankle fracture Post-Op Diagnosis: Right ankle fracture I identified the patient and participated in the time-out.: Yes Procedure Operation Date: 09/15/19 07:30 Actual Procedures p Open Reduction Internal Fixation Bimalleolar Right Ankle Fracture(Right) - Ross Decker DO Surgeon Ross Decker DO Infrastructure Tech Loc Gracia Estimated Blood Loss 55 Findings Consistent with Post-Op Diagnosis Fluids 300 cc LR Specimens none Anesthesia Type General Complications none Disposition Disposition: Recovery Room Overlapping Procedure I was present for: the critical portions of procedure. I was immediately available: during the entire case. Back up surgeon: was not required during procedure.
--- NOTE | 2019-09-15 09:51 | Fluoroscopy Report ---
FL ankle RT min 3V RTN HISTORY: 63 years-old Female ORIF RT ANKLE acute fracture of the right ankle COMPARISON: Right ankle radiographs 09/13/2019 TECHNIQUE: 7 spot fluoroscopic images of the right ankle were obtained utilizing 115.2 seconds fluoro scopy time FINDINGS: There are 2 elongated cannulated screws fixating the acute medial malleolar fracture. Lateral plate a nd screw fixation of the distal fibular fracture. There is satisfactory alignment of the ankle fractu res. A single screw of the distal fibular metadiaphysis extends anterior to posterior. Expected posts urgical soft tissue swelling and deep tissue air. Hardware appears intact. IMPRESSION: Fluoroscopic assistance as above. Please see operative report for full details. ACT 112: Negative or not required by law. The above report was generated using voice recognition software. It may contain grammatical, syntax o r spelling errors. Electronically signed by: Sebastian Magallanes M.D. 09/15/2019 9:49 AM
[2019-09-15 10:54] LABS: Hematocrit (blood only) 41.1 % (37-47); Hemoglobin 13.4 g/dL (12.0-16.0); Mean Corpuscular Hemoglobin 31.2 pg (25-34); Mean Corpuscular Hgb Conc 32.6 g/dL (32-36); Mean Corpuscular Volume 95.6 fL (80-100); Mean Platelet Volume 10.3 fL (7.4-10.4); Platelet Count 249 K/uL (130-400); RDW Coefficient of Variation 14.3 % (11.5-14.5); RDW Standard Deviation 49.8 fL (36.4-46.3); White Blood Count 10.31 K/uL (4.8-10.8)
--- NOTE | 2019-09-15 10:54 | Operative Report ---
Post Operative Report Pre & Post Diagnosis Operation Date: 09/15/19 07:30 Pre-Op Diagnosis: Right ankle fracture Post-Op Diagnosis: Right ankle fracture I identified the patient and participated in the time-out.: Yes Procedure Operation Date: 09/15/19 07:30 Actual Procedures p Open Reduction Internal Fixation Bimalleolar Right Ankle Fracture(Right) - Ross Decker DO Surgeon Ross Decker DO Manager Produce Loc Gracia Estimated Blood Loss 55 Findings Consistent with Post-Op Diagnosis Fluids 300 cc LR Specimens None Anesthesia Type General Complications none Disposition Disposition: Recovery Room Indications The patient is a 63-year-old female who sustained a syncopal episode. She described feeling a little lightheaded was getting out of bed to go to the bathroom and had the episode and twisted her ankle and was unable to bear weight. Was seen at [facility] ED and admitted for further inpatient evaluation and treatments. XRs of the right ankle and foot demonstrated a minimally displaced bimalleolar fracture and a non displaced base of the 2nd MT fracture. I have indicated the patient for closed reduction and splint application versus open reduction internal fixation of right bimalleolar ankle fracture. The risk, benefits, complications and alternatives of the procedure were explained to the patient in detail which include however not limited to infections, blood clots, acute blood loss, injury to surrounding nerves, bone, vessels, soft tissue, arthrofibrosis, chronic pain, malunion, nonunion, failure of the implants, need for additional surgery, loss of limb and loss of life. Alternatives include no surgery which could result in worsening symptoms. Patient wished to proceed with surgical intervention at this time and informed consent was obtained. Nonsurgical management of metatarsal fracture with mobilization of ankle and metatarsal fracture postop. Description of Procedure The patient was brought to the operating suite and placed in the supine position on the OR table. Upon the administration of general anesthesia, a well-padded tourniquet was applied to the proximal thigh of the right leg. The skin of the right ankle was carefully examined and found to be clean, dry and intact with mild edema, +wrinkle sign. The decision was made to proceed with ORIF right ankle. The surgical limb was prepped and draped in the typical sterile fashion. A time out was performed, patient identified and site loc confirmed. Appropriate pre operative antibiotics were verified and given. The limb was exsanguinated and the tourniquet was inflated to 300mmHg. Utilizing c-arm fluoroscopy the lateral malleolus fracture was identified and marked out. I made a longitudinal incision over the distal aspect of the fibula. I sharply incised the skin and then used Bovie electrocautery to achieve hemostasis. Care was taken to protect the neurovascular structures. The superficial peroneal nerve was located 5-6cm proximal to the tip of the distal fibula, a vessel loop was used to tag the nerve. I then dissected down to the long oblique fibular fracture and cleared it of any interposing soft tissue with the help of periosteal elevator, dental pick and a small curette and then reduced the fracture with a point to point clamp. Next a 3.5mm lag screw by technique measuring 18mm was placed across the fracture site and countersunk. The clamp was then removed and the fracture remained nicely reduced and was stable. I then positioned the 6 hole distal fibular locking plate laterally over the fibula, two k-wires were placed in the distal aspect of the plate to hold the plate to the bone. Once I was satisfied with the position of the plate I placed a nonlocking cortical screw measuring 14mm proximally in the plate to bring the plate down to bone. I confirmed reduction and plate position with c-arm fluoroscopy. I then placed 4 distal locking screws measuring 16, 14, 14, 10 and 8 mm and confirmed screw positioning which was all inside the bone and did not violate the joint. Next two non locking cortical screws were placed in the proximal aspect of the plate measuring 12mm and 12 mm. The c-arm fluoroscopy was utilized to confirm adequate positioning of all screws and plate. Next, I turned my attention to the medial aspect of the ankle. A 3cm curvilinear incision was made over the tip of the medial malleolus. The nondisplaced transverse medial malleolus fracture was cleared of all debris and reduced. Two k-wires were placed in the tip of the medial malleolus perpendicular to the fracture site holding the reduction. C-arm fluoroscopy confirmed reduction and positioning of the k-wires. Next, two 3.5 mm partially long threaded cannulated screws measuring 50 mm were placed over the k-wires. Once again screw placement and fracture reduction was assessed with c-arm fluoroscopy. Both k-wires were removed at this time. I confirmed reduction on AP, lateral and mortise views. Utilizing a towel clamp a stress was applied to the fibula laterally which demonstrated no residual widening of the medial clear space or instability at the syndesmosis. Final XRs were performed and I confirmed reduction and implant position on AP, lateral and mortise views. The wounds were thoroughly irrigated with sterile saline solution. The medial and lateral wounds were injected with 30cc .5% marcaine without epi. Utilizing 1 Vicryl suture the periosteum was closed over the distal fibular locking plate. Laterally subcutaneous tissue was closed with interrupted 2-0 Vicryl sutures and the skin closed with 3-0 nylon suture. Medially subcutaneous tissue was closed with interrupted 2-0 Vicryl sutures and the skin closed with 3-0 Nylon suture. The skin was approximated nicely and was without tension. A sterile dressing was applied which included xeroform, 4x4s, ABDs and webrill and an AO was splint placed. The tourniquet was released at 91 minutes. All needle and sponge counts were correct at the end of the procedure. The patient was transferred to the PACU in stable condition. The patient tolerated the procedure well and was without apparent complications. Due to the complex nature of the procedure, the entire surgery was performed with the operational assistance of Loc Gracia PA-C. The mailing machine assistant, under direct supervision, was involved in the actual performance of all aspects of the surgical procedure including patient positioning, hemostasis, tissue retraction, instrument management and wound closure. I attest to the content of the Intraoperative Record and any orders documented therein. Any exceptions are noted below.
[2019-09-15 11:02] LABS: Prothrombin Time 10.6 Seconds (9.0-12.0)
--- NOTE | 2019-09-15 11:07 | XRay Report ---
XR ankle RT 2V HISTORY: 63 years-old Female PACU, post op ORIF ankle ORIF of the right ankle COMPARISON: Right foot and ankle radiographs 09/13/2019 TECHNIQUE: 2 views of the right ankle FINDINGS: Overlying cast material limits evaluation of the fine bony detail. There are 2 elongated cannulated s crews fixating the acute medial malleolar fracture. Lateral plate and screw fixation of the distal fi bular fracture. There is satisfactory alignment of the ankle fractures. A single screw of the distal fibular metadiaphysis extends anterior to posterior. Expected postsurgical soft tissue swelling and d eep tissue air. Hardware appears intact. IMPRESSION: Satisfactory alignment status post ORIF. ACT 112: Negative or not required by law. The above report was generated using voice recognition software. It may contain grammatical, syntax o r spelling errors. Electronically signed by: Sebastian Magallanes M.D. 09/15/2019 11:06 AM
[2019-09-15 11:10] LABS: BUN Creatinine Ratio 13.4 (10-20); Calcium 8.6 mg/dl (8.5-10.1); Creatinine Clr Calc Pharmacy 57.8 ml/min; Est GFR (African American) 52.3; Est GFR (Non-African American) 45.1; Magnesium 2.2 mg/dl (1.8-2.4); Potassium 4.4 mmol/L (3.5-5.1)
--- NOTE | 2019-09-15 11:34 | Orthopedic Progress Note ---
Date of Service September 15, 2019 Assessment & Plan (1) Bimalleolar fracture of right ankle: Status post ORIF right ankle -Ancef x24 -DVT prophylaxis: SCDs, teds, Lovenox daily -Nonweightbearing right lower extremity -Ice and elevate operative extremity -A.m. lab -Postoperative x-ray demonstrates aligned well fixed orthopedic implant, anatomic alignment of the fracture site and congruent mortise. -Pain control (2) Fracture of second metatarsal bone of right foot: Nonsurgical management of metatarsal fracture with mobilization of ankle and metatarsal fracture postop. Subjective Post Operative Progress Note Patient seen in PACU, comfortable, denies complaints, pain well controlled, no acute issues. Review of Systems Review of Systems: All systems reviewed & are unremarkable except as noted in HPI & below Constitutional: as per Subjective / HPI Physical Exam Physical Exam: RLE NVSI +EHL/FHL/ SILT grossly, +2 DP pulse, compartments soft NT, dressing cdi. Posterior ankle splint in place. Constitutional: WD/WN, vitals as above Results & Data Vital Signs (Past 12 Hours) Vital Signs Temp Pulse Pulse Pulse Resp BP Pulse Ox 09/15/19 11:21 36.4 C L 89 22 154/76 H 97 09/15/19 11:10 36.6 C 89 22 128/80 97 09/15/19 11:00 88 20 138/87 95 09/15/19 10:50 88 22 143/86 H 95 09/15/19 10:40 90 17 143/88 H 96 09/15/19 10:30 91 H 21 152/89 H 99 09/15/19 10:20 92 H 14 117/102 H 99 09/15/19 10:14 36.2 C L 86 14 162/98 H 97 09/15/19 07:52 37.1 C 83 20 123/80 93 09/15/19 03:32 37.0 C 84 20 109/70 92 09/15/19 00:30 89 09/15/19 00:21 36.8 C 86 20 137/85 92 (1) Bimalleolar fracture of right ankle Encounter type: initial encounter Fracture type: closed Qualified Code(s): S82.841A - Displaced bimalleolar fracture of right lower leg, initial encounter for closed fracture (2) Fracture of second metatarsal bone of right foot Encounter type: initial encounter Fracture alignment: nondisplaced Fracture type: closed Qualified Code(s): S92.324A - Nondisplaced fracture of second metatarsal bone, right foot, initial encounter for closed fracture
[2019-09-15] MEDS ORDERED: METOCLOPRAMIDE HCL INJ 5 MG/ML 2 ML VIAL IV PRN (11:38)
[2019-09-15] MEDS ORDERED: MAGNESIUM HYDROXIDE SUSP 30 ML UDC PO PRN (11:38)
[2019-09-15] MEDS ORDERED: bisacodyL 10 MG SUPP PR PRN (11:38)
[2019-09-15] MEDS ORDERED: NALOXONE HCL 0.4 MG/1 ML VIAL/CARP IV PRN (11:38)
[2019-09-15] MEDS ORDERED: HYDROmorphone INJ 0.5 MG/0.5 ML SYR IV PRN (11:38)
[2019-09-15] MEDS ORDERED: SODIUM CHLORIDE 0.9% 1000ML 1,000 ML IV SCH (11:38)
[2019-09-15] MEDS: ASPIRIN 81 MG ECTAB PO SCH (11:50)
[2019-09-15] MEDS: BuPROPion SR 150 MG TABCR PO SCH ×2 (11:50→20:46)
[2019-09-15] MEDS: METOPROLOL TARTRATE 25 MG TAB PO SCH ×2 (11:50→20:48)
[2019-09-15] MEDS: PANTOprazole 40 MG TAB PO SCH ×2 (11:50→20:48)
[2019-09-15] MEDS: CITALOPRAM 40 MG TAB PO SCH (11:50)
[2019-09-15] MEDS: OXYCODONE HCL IR 5 MG TAB (IMMEDIATE RELEASE) PO PRN ×2 (11:56→18:54)
--- NOTE | 2019-09-15 12:28 | Anesthesiology Progress Note ---
Date of Service September 15, 2019 Anesthesia Post Procedure Vital Signs Vital Signs: Temp Pulse Pulse Pulse Resp BP BP 09/15/19 11:56 37.5 C 88 18 150/71 H 09/15/19 11:30 37.2 C 88 18 135/75 09/15/19 11:21 36.4 C L 89 22 154/76 H 09/15/19 11:10 36.6 C 89 22 128/80 09/15/19 11:00 88 20 138/87 09/15/19 10:50 88 22 143/86 H 09/15/19 10:40 90 17 143/88 H 09/15/19 10:30 91 H 21 152/89 H 09/15/19 10:20 92 H 14 117/102 H 09/15/19 10:14 36.2 C L 86 14 162/98 H 09/15/19 07:52 37.1 C 83 20 123/80 09/15/19 03:32 37.0 C 84 20 109/70 09/15/19 00:30 89 09/15/19 00:21 36.8 C 86 20 137/85 09/14/19 22:57 37.1 C 95 H 20 148/81 H 09/14/19 19:45 37.1 C 83 20 130/77 09/14/19 15:08 36.7 C 85 20 139/81 09/14/19 15:00 87 Pulse Ox 09/15/19 11:56 98 09/15/19 11:30 95 09/15/19 11:21 97 09/15/19 11:10 97 09/15/19 11:00 95 09/15/19 10:50 95 09/15/19 10:40 96 09/15/19 10:30 99 09/15/19 10:20 99 09/15/19 10:14 97 09/15/19 07:52 93 09/15/19 03:32 92 09/15/19 00:30 09/15/19 00:21 92 09/14/19 22:57 93 09/14/19 19:45 94 09/14/19 15:08 94 09/14/19 15:00 Pain Intensity Right Ankle: Pain Intensity: 4 Transfer of Care Handoff Completed per policy Notes Mental Status: alert / awake / arousable Patient Amnestic to Procedure: Yes Nausea / Vomiting: adequately controlled Pain: adequately controlled Airway Patency, RR, SpO2: stable & adequate BP & HR: stable & adequate Hydration State: stable & adequate Anesthetic Complications: no major complications apparent
[2019-09-15] MEDS: CEFAZOLIN 2000MG 2,000 MG/15 ML SYR IV SCH ×2 (13:00→20:52)
[2019-09-15] MEDS: ACETAMINOPHEN 500 MG TAB PO SCH ×2 (15:23→20:47)
[2019-09-15] MEDS: DOCUSATE SODIUM 100 MG CAP PO SCH (20:48)
[2019-09-15] MEDS ORDERED: SENNA 8.6 MG TAB PO SCH (21:00)
--- NOTE | 2019-09-15 22:49 | Hospitalist Progress Note ---
Date of Service September 15, 2019 Assessment & Plan (1) Syncope: (2) Fall: Orthostatic hypotension Pt is 63 y/o F with PMH HTN, asthma, CKD III, HLD, depression, obesity presented to ER with c/o episode of dizziness with walking to bathroom at 1:00AM followed by black vision / presyncope and fall. Denies SOB, CP prior to fall. In ER afebrile, P: 67, R: 20, BP: 138/95, 99% on RA. WBC: 15, Hgb: 15.5, Na: 135, glucose: 116, negative troponin, EKG with sinus rhythm, PAC, nonspecific ST changes CT HEAD: No acute changes CXR: no acute changes DDX: orthostatic hypotension, vasovagal syncope, hypoglycemia, arrhythmia -Tele to monitor for arrhythmias - patient remains in sinus rhythm -Positive orthostatic vitals -Received IV fluids for orthostatics, no more episodes of lightheadedness, encourage p.o. hydration -Echo and carotid ultrasound -unremarkable -UA - negative -CPK WNL -Fall precautions -cont. CBC, BMP (3) Closed right ankle fracture: (4) Closed fracture of metatarsal of right foot: Bimalleolar fracture of right ankle Fracture of second metatarsal bone of right foot S/P Fall RIGHT ANKLE XRAY: 1. Nondisplaced oblique fracture of the distal fibula. 2. Minimal widening of the medial ankle mortise. RIGHT FOOT XRAY: 1. Transverse fracture medial malleolus right ankle. 2. Nondisplaced fracture base second metatarsal. 3. Degenerative change. 4. Small old avulsion anterior inferior calcaneus -In ER given Morphine 4mg IV, Zofran 4mg IV -In ER splint applied to right lower leg and foot -Oxycodone prn pain -Orthopedics service consulted Bimalleolar fracture of right ankle: Status post ORIF right ankle earlier today (09/15/2019) w/ Dr. Decker -Patient tolerated procedure well -received Ancef x24 -DVT prophylaxis: SCDs, teds, Lovenox daily -Nonweightbearing right lower extremity -Ice and elevate operative extremity -Postoperative x-ray demonstrates aligned well fixed orthopedic implant, anatomic alignment of the fracture site and congruent mortise. -Pain control Fracture of second metatarsal bone of right foot: Nonsurgical management of metatarsal fracture with mobilization of ankle and metatarsal fracture postop. -Cont. PT/OT (5) Asthma: Recent URI symptoms 2 weeks ago with improvement of symptoms No current wheezing -Pt not taking her Flovent that was previously prescribed as it was too expensive -Continue albuterol prn (6) Hypertension: Stable -Continue metoprolol (7) CKD (chronic kidney disease), stage III: Cr: 1.39. Baseline Cr: 1.2 - current Cr 1.25 -Avoid nephrotoxic agents when possible -Monitor renal functions (8) Depression: Stable -Continue citalopram, bupropion (9) Hyperlipidemia: -Pt not taking statin. Unsure why she stopped taking it (10) EUGENE (obstructive sleep apnea): -Noncompliant with CPAP in past -Oxygen HS (11) Obesity: BMI>40 -Lifestyle modifications recommended (12) Tobacco use: -Smoking cessation encouraged -Denies nicotine patch DVT Prophylaxis -Lovenox SQ Full Code as per discussion with pt Follows with Dr Carmen Manzanares for routine care Subjective Pt is lying in bed, in no acute distress, comfortable. Underwent R ankle surgery earlier today. Tolerated procedure well. Currently denies any fever, chills, chest pain, shortness of breath, abd. pain, nausea, vomiting. Also denies any pain in her leg, no sensory loss, and moves toes w/o difficulty. Review of Systems Review of Systems: All systems reviewed & are unremarkable except as noted in HPI & below Constitutional: no fever and no chills Respiratory: no cough and no dyspnea Cardiovascular: no chest pain, no dyspnea on exertion and no palpitations Gastrointestinal: no abdominal pain, no nausea and no vomiting Physical Exam Physical Exam: General: Elderly obese female, lying in bed, in no acute distress Head: normocephalic, atraumatic Eyes: PERRL, EOM's intact, conjunctiva non-injected, anicteric ENT: normal inspection external ears, nose, mucous membranes moist Neck: supple, trachea midline, non-tender, ROM intact Lungs: clear, no respiratory distress, no wheezing/rhonchi/rales CV: RRR, no murmur Abd: normal BS, soft, obese, non-tender to palp. Ext: RLE: + Posterior ankle splint in place, sensation to light touch of exposed toes intact, brisk capillary refill, moves her toes spontaneously and without difficulty LLE: normal appearance, ROM intact. BUE: normal appearance, ROM intact. Neuro: A&O x 3, no facial asymmetry, speech fluent, moves extremities spontaneously, normal affect Skin: warm, dry, well perfused Results & Data Vital Signs (Past 12 Hours) Vital Signs Temp Pulse Pulse Pulse Resp BP Pulse Ox 09/15/19 20:44 90 110/75 09/15/19 19:44 37.1 C 84 20 136/106 H 92 09/15/19 16:00 83 09/15/19 13:30 37.2 C 83 20 96 09/15/19 12:30 37.1 C 85 20 124/82 92 09/15/19 12:00 83 09/15/19 11:56 37.5 C 88 18 150/71 H 98 09/15/19 11:30 37.2 C 88 18 135/75 95 09/15/19 11:21 36.4 C L 89 22 154/76 H 97 09/15/19 11:10 36.6 C 89 22 128/80 97 09/15/19 11:00 88 20 138/87 95 09/15/19 10:50 88 22 143/86 H 95
[2019-09-15] MEDS: ENOXAPARIN INJ 40 MG/0.4 ML SYR SQ SCH (23:16)
[2019-09-16] MEDS: ACETAMINOPHEN 500 MG TAB PO SCH ×2 (06:39→13:27)
[2019-09-16 07:12] LABS: Hematocrit (blood only) 38.2 % (37-47); Hemoglobin 12.5 g/dL (12.0-16.0); Mean Corpuscular Hemoglobin 31.1 pg (25-34); Mean Corpuscular Hgb Conc 32.7 g/dL (32-36); Mean Platelet Volume 10.4 fL (7.4-10.4); Platelet Count 264 K/uL (130-400); RDW Coefficient of Variation 14.1 % (11.5-14.5); RDW Standard Deviation 48.8 fL (36.4-46.3); Red Blood Count 4.02 M/uL (4.2-5.4); White Blood Count 16.11 K/uL (4.8-10.8)
--- NOTE | 2019-09-16 07:35 | Orthopedic Progress Note ---
Date of Service September 16, 2019 Assessment & Plan (1) Bimalleolar fracture of right ankle: POD 1, Status post ORIF right ankle -Ancef x24 -DVT prophylaxis: SCDs, teds, Lovenox daily -Nonweightbearing right lower extremity w walker. -Ice and elevate operative extremity -A.m. lab, PRP pending otherwise stable. Hgb 12.5 -Patient stable orthopedically, Follow up with Dr. Decker 12-14 days post op, for appt. -Keep dressings c/d/i until follow up. (2) Fracture of second metatarsal bone of right foot: Nonsurgical management of metatarsal fracture with mobilization of ankle and metatarsal fracture postop. Supervising Physician Co-Signing Physician Notes I have personally seen and examined the patient. Agree with above assessment plan. Subjective POD #1, Doing well. Pain controlled well. Denies SOB, CP, N/V. Review of Systems Review of Systems: All systems reviewed & are unremarkable except as noted in HPI & below Constitutional: as per Subjective / HPI Physical Exam Physical Exam: Right ankle dressing/ splint c/d/i. Toes mobile. Good sensation at toes. A&Ox3. Constitutional: WD/WN, vitals as above Results & Data Vital Signs (Past 12 Hours) Vital Signs Temp Pulse Pulse Resp BP BP Pulse Ox 09/16/19 04:50 36.7 C 69 20 106/68 93 09/15/19 23:45 37.1 C 73 20 115/77 92 09/15/19 22:20 83 09/15/19 20:44 90 110/75 09/15/19 19:44 37.1 C 84 20 136/106 H 92 Laboratory Results 09/16/19 09/16/19 Range/Units 06:32 06:32 WBC 16.11 H (4.8-10.8) K/uL RBC 4.02 L (4.2-5.4) M/uL Hgb 12.5 (12.0-16.0) g/dL Hct 38.2 (37-47) % MCV 95.0 (80-100) fL MCH 31.1 (25-34) pg MCHC 32.7 (32-36) g/dL RDW Std Deviation 48.8 H (36.4-46.3) fL RDW Coeff of Janna 14.1 (11.5-14.5) % Plt Count 264 (130-400) K/uL MPV 10.4 (7.4-10.4) fL Sodium 136 (136-145) mmol/L Potassium 3.9 (3.5-5.1) mmol/L Chloride 104 (98-107) mmol/L Carbon Dioxide 29 (21-32) mmol/L Anion Gap 3.0 (3-11) BUN 17 (7-18) mg/dl Creatinine 1.10 (0.6-1.2) mg/dl Est Cr Clr Drug Dosing 65.4 ml/min Est GFR ( Amer) 61.0 Est GFR (Non-Af Amer) 52.6 BUN/Creatinine Ratio 15.3 (10-20) Glucose 111 H (70-99) mg/dl Calcium 8.6 (8.5-10.1) mg/dl (1) Fracture of second metatarsal bone of right foot Encounter type: initial encounter Fracture alignment: nondisplaced Fracture type: closed Qualified Code(s): S92.324A - Nondisplaced fracture of second metatarsal bone, right foot, initial encounter for closed fracture (2) Bimalleolar fracture of right ankle Encounter type: initial encounter Fracture type: closed Qualified Code(s): S82.841A - Displaced bimalleolar fracture of right lower leg, initial encounter for closed fracture
[2019-09-16 07:45] LABS: BUN Creatinine Ratio 15.3 (10-20); Calcium 8.6 mg/dl (8.5-10.1); Creatinine Clr Calc Pharmacy 65.4 ml/min; Est GFR (Non-African American) 52.6; Potassium 3.9 mmol/L (3.5-5.1)
[2019-09-16] MEDS: METOPROLOL TARTRATE 25 MG TAB PO SCH (08:19)
[2019-09-16] MEDS: PANTOprazole 40 MG TAB PO SCH (08:20)
[2019-09-16] MEDS: DOCUSATE SODIUM 100 MG CAP PO SCH (08:20)
[2019-09-16] MEDS: CITALOPRAM 40 MG TAB PO SCH (08:20)
[2019-09-16] MEDS: BuPROPion SR 150 MG TABCR PO SCH (08:20)
[2019-09-16] MEDS: ASPIRIN 81 MG ECTAB PO SCH (08:21)
[2019-09-16] MEDS ORDERED: MULTIVITAMIN TAB PO SCH (09:00)
--- NOTE | 2019-09-16 14:02 | Discharge Summary ---
Date of Service September 16, 2019 Admission HPI Per Admitting Provider Pt is 63 y/o F with PMH HTN, asthma, CKD III, HLD, depression, obesity presented to ER with c/o syncope and fall. Pt reports 2 weeks ago started with sore throat, cough, nasal congestion, wheezing without fever/chills. She states was taking Marita-seltzer, then tried Delsym and has been taking Mucinex DM once a day. Reports sore throat, congestion, wheezing and cough has resolved. Reports SOB at baseline and uses Albuterol inhaler a couple of times a week at baseline and denies more frequent use recently. Reports last night got out of bed at 1:00AM and felt dizzy with walking and then reports vision went black and passed out for what she thinks was seconds. She thinks hit her head. States had right ankle pain and was unable to stand up and tried for approx 20 minutes to get herself back into bed. C/O right ankle and foot pain only. Denies any CP or increased SOB prior to syncope. Pt denies frequent dizziness with standing and denies prior hx syncope. Denies fever/chills, diaphoresis, N/V/D/C, VAIL, vision changes, neck pain, CP, orthopnea, palpitations, choking, otalgia, abdominal pain, paresthesias, extremity edema, rashes, urinary symptoms. Admission Exam Per Admitting Provider General: no acute distress, obese Head: normocephalic, atraumatic Eyes: PERRL, EOM's intact, conjunctiva non-injected, anicteric ENT: normal inspection external ears, nose, mucous membranes moist Neck: supple, trachea midline, non-tender, ROM intact Lungs: clear, no respiratory distress, no wheezing/rhonchi/rales CV: RRR, no murmur, no pretibial edema Abd: normal BS, soft, non-tender Ext: RLE: +splint lower leg to toes in place, sensation to light touch of exposed toes intact, brisk capillary refill. LLE: normal appearance, ROM intact. BUE: normal appearance, ROM intact. Neuro: A&O x 3, no focal deficits noted, normal affect Skin: warm, dry Principal Diagnosis Orthostatic hypotension, Fracture of right ankle, status post ORIF Discharge Exam General: Elderly obese female, sitting up in a chair, in no acute distress Head: normocephalic, atraumatic Eyes: PERRL, EOM's intact, conjunctiva non-injected, anicteric ENT: normal inspection external ears, nose, mucous membranes moist Neck: supple, trachea midline, non-tender, ROM intact Lungs: clear, no respiratory distress, no wheezing/rhonchi/rales CV: RRR, no murmur Abd: normal BS, soft, obese, non-tender to palp. Ext: RLE: + Posterior ankle splint in place, sensation to light touch of exposed toes intact, brisk capillary refill, moves her toes spontaneously and without difficulty LLE: normal appearance, ROM intact. BUE: normal appearance, ROM intact. Neuro: A&O x 3, no facial asymmetry, speech fluent, moves extremities spontaneously, normal affect Skin: warm, dry, well perfused Discharge Data Allergies Allergy/AdvReac Type Severity Reaction Status Date / Time No Known Allergies Allergy Unverified 09/13/19 14:37 Consultations 09/13/19 17:57 ED Decision to Admit Stat 09/13/19 21:23 Consult Case Management - Discharge Planning Routine 09/14/19 07:00 Consult Orthopedic Surgery Routine 09/15/19 11:38 Consult Case Management - Discharge Planning Routine Procedures Performed Operation Date: 09/15/19 07:30 Actual Procedures p Open Reduction Internal Fixation Bimalleolar Right Ankle Fracture(Right) - Ross Decker DO Ordered Studies 09/13/19 14:23 CT head/brain wo con Stat Findings: The paranasal sinuses and mastoid air cells are clear. The calvarium and skull base are intact. The ventricles and sulci are within normal limits. There is no mass, hematoma, midline shift, or acute infarct. Impression: No acute intracranial abnormality. 09/14/19 13:54 US carotid doppler BI Routine IMPRESSION: 1. No hemodynamically significant stenosis seen within the carotid arteries. 2. Hypertension suspected. Echocardiogram (09/14/2019) -EF 60 to 65%, mild concentric LVH, grade 1 diastolic dysfunction, no significant valvular pathology. Borderline dilated ascending aorta. 09/15/19 07:00 FL ankle RT min 3V RTN Routine FL fluoroscopy <1hr Routine FINDINGS: There are 2 elongated cannulated screws fixating the acute medial malleolar fracture. Lateral plate and screw fixation of the distal fibular fracture. There is satisfactory alignment of the ankle fractures. A single screw of the distal fibular metadiaphysis extends anterior to posterior. Expected postsurgical soft tissue swelling and deep tissue air. Hardware appears intact. IMPRESSION: Fluoroscopic assistance as above. Please see operative report for full details. R ankle X-ray 09/15/2019 FINDINGS: Overlying cast material limits evaluation of the fine bony detail. There are 2 elongated cannulated screws fixating the acute medial malleolar fracture. Lateral plate and screw fixation of the distal fibular fracture. There is satisfactory alignment of the ankle fractures. A single screw of the distal fibular metadiaphysis extends anterior to posterior. Expected postsurgical soft tissue swelling and deep tissue air. Hardware appears intact. IMPRESSION: Satisfactory alignment status post ORIF. Hospital Course (1) Fall: Syncope due to Orthostatic hypotension Pt is 63 y/o F with PMH HTN, asthma, CKD III, HLD, depression, obesity presented to ER with c/o episode of dizziness with walking to bathroom at 1:00AM followed by black vision / presyncope/syncope and fall. Denies SOB, CP prior to fall. In ER afebrile, P: 67, R: 20, BP: 138/95, 99% on RA. WBC: 15, Hgb: 15.5, Na: 135, glucose: 116, negative troponin, EKG with sinus rhythm, PAC, nonspecific ST changes CT HEAD: No acute changes CXR: no acute changes DDX: orthostatic hypotension, vasovagal syncope, hypoglycemia, arrhythmia -Tele to monitor for arrhythmias - patient remains in sinus rhythm -Positive orthostatic vitals -Received IV fluids for orthostatics, no more episodes of lightheadedness, encourage p.o. hydration -Echo ) - EF 60 to 65%, mild concentric LVH, grade 1 diastolic dysfunction, no significant valvular pathology. Borderline dilated ascending aorta. -Carotid ultrasound - No hemodynamically significant stenosis seen within the carotid arteries. -UA - negative -CPK WNL -Fall precautions -cont. CBC, BMP (2) Closed right ankle fracture: (3) Closed fracture of metatarsal of right foot: Bimalleolar fracture of right ankle Fracture of second metatarsal bone of right foot S/P Fall RIGHT ANKLE XRAY: 1. Nondisplaced oblique fracture of the distal fibula. 2. Minimal widening of the medial ankle mortise. RIGHT FOOT XRAY: 1. Transverse fracture medial malleolus right ankle. 2. Nondisplaced fracture base second metatarsal. 3. Degenerative change. 4. Small old avulsion anterior inferior calcaneus -In ER given Morphine 4mg IV, Zofran 4mg IV -In ER splint applied to right lower leg and foot -Oxycodone prn pain -Orthopedics service consulted Bimalleolar fracture of right ankle: Status post ORIF right ankle (09/15/2019) w/ Dr. Decker -Patient tolerated procedure well -received Ancef x24 -DVT prophylaxis: ASA 81mg BID -Nonweightbearing right lower extremity -Ice and elevate operative extremity -Postoperative x-ray demonstrates aligned well fixed orthopedic implant, anatomic alignment of the fracture site and congruent mortise. -Pain control Fracture of second metatarsal bone of right foot: Nonsurgical management of metatarsal fracture with mobilization of ankle and metatarsal fracture postop. Follow up with Dr. Decker 12-14 days post op, call [phone] for appt. -Cont. PT/OT (4) Asthma: Recent URI symptoms 2 weeks ago with improvement of symptoms No current wheezing -Pt not taking her Flovent that was previously prescribed as it was too expensive -Continue albuterol prn (5) Hypertension: Stable -Continue metoprolol (6) CKD (chronic kidney disease), stage III: GIOVANA on CKD Cr: 1.39. Baseline Cr: 1.2 - current Cr 1.10 -Avoid nephrotoxic agents when possible -Monitor renal functions Leukocytosis - likely reactive s/p surgery - no signs of infection - should be monitored w/ home health after discharge, follow up w/ PCP (7) Depression: Stable -Continue citalopram, bupropion (8) Hyperlipidemia: -Pt not taking statin. Unsure why she stopped taking it (9) EUGENE (obstructive sleep apnea): -Noncompliant with CPAP in past -Oxygen HS (10) Obesity: BMI>40 -Lifestyle modifications recommended (11) Tobacco use: -Smoking cessation encouraged -Denies nicotine patch DVT Prophylaxis -Lovenox SQ Full Code as per discussion with pt Follows with Dr Carmen Manzanares for routine care Total Time Total Time Spent Total Time Spent (In Minutes): 40 Total Time Includes: Examination of the Patient, Discharge Planning, Medication Reconciliation and Communication With Other Providers Discharge Plan Discharge Items Patient Disposition: Home - Home Health Services Reason For Visit: SYNCOPE Discharge Diagnosis: Orthostatic hypotension, Fracture of right ankle, status post ORIF Activity: Per Instructions section Non-emergency contact: Primary Care Provider and Surgeon Call non-emergency contact if: you have any medication questions and your symptoms worsen Follow-up/Referrals: Carmen Manzanares MD [Primary Care Provider] - Diet: Heart Healthy Addtl Attending Provider Instructions: Instructions per orthopedics: -Nonweightbearing right lower extremity with a walker -Ice and elevate operative extremity -For DVT prophylaxis, take aspirin twice a day. Discuss with your orthopedic surgeon, when you should start taking aspirin only once a day again. -Follow up with Dr. Decker (orthopedic surgery), 12-14 days post op. Call [phone] for appt. -Keep dressings clean/dry/intact until follow up - -Home health agency will be set up for you -You should follow-up with your primary care provider in 1 to 2 weeks -For pain, you can take Tylenol 1000 mg 3 times a day, max daily dose is 3000 mg. For more severe pain, you can take tramadol, 25 mg(half a tablet), or 50 mg(whole tablet), as prescribed/as needed. -Prescription for a walker, given to you on discharge Pending Studies at Discharge: No Stand-Alone Forms: [employer], Smoking Cessation Medications and DC Order Prescriptions: New tramadol 50 mg tablet 50 mg PO BID Qty: 10 RF: 0 Continued metoprolol tartrate 25 mg Tablet 25 mg PO BID Qty: 0 RF: 0 citalopram 40 mg Tablet 40 mg PO DAILY Qty: 0 RF: 0 bupropion HCl [Wellbutrin SR] 150 mg Tablet Sustained-Release 12 Hr 150 mg PO BID 30 Days Qty: 60 RF: 5 albuterol sulfate 2.5 mg /3 mL (0.083 %) Solution For Nebulization 2.5 mg INHALATION QID PRN (Reason: Shortness Of Breath) RF: 0 albuterol sulfate 90 mcg/actuation Hfa Aerosol Inhaler 2 puff INHALATION QID PRN (Reason: SHORTNESS OF BREATH) RF: 0 lansoprazole 30 mg Capsule,Delayed Release(Dr/Ec) 30 mg PO BID RF: 0 dextromethorphan-guaifenesin [Mucinex DM] 60-1,200 mg Tablet Extended Release 12 Hr 1 tab PO Q12H RF: 0 Changed aspirin 81 mg Tablet,Delayed Release (Dr/Ec) 81 mg PO BID Qty: 0 RF: 0 Discharge Orders: Discharge Order (Routine); Ordered 09/16/19 Ordered By: Carlos Hudson Admission Data Admit Date/Time: 09/13/19 18:13 Attending Provider: Carlos Hudson Admit Provider: Pearl Ahuja Primary Care Provider: Carmen Manzanares Other Providers: Pearl Ahuja ; Ross Decker
== END 2019-09-16 16:53 | disposition home health service (06) | DRG 493 ==
LOC: ED 13:36 → 2W 18:13 → SUATTDRO 18:13 → 2W 20:45